=== PATIENT | male | born 1995 | race Caucasian/White ===

== ENCOUNTER 2017-01-12 21:12 | Emergency (ER) | payer OTHER | END 2017-01-12 21:16 | disposition home or self-care (01) | LOC: CFTX 21:12 | DX: L02.214 Cutaneous abscess of groin (principal); J45.909 Unspecified asthma, uncomplicated; Z96.22 Myringotomy tube(s) status; Z87.891 Personal history of nicotine dependence | CPT/HCPCS: 99282 ==